=== PATIENT | male | born 1990 | race American Indian/Alaskan Native ===

== ENCOUNTER 2018-10-23 12:10 | Emergency (ER) | payer OTHER ==
[2018-10-23 12:10] VITALS: BMI 20.9
[2018-10-23 12:18] VITALS: BP 119/69; PULSE 76; RESP 18; TEMP 98.6; O2SAT 97
--- NOTE | 2018-10-23 14:42 | RAD ---
Date of service: 10/23/2018 PROCEDURE: HISTORY: pain COMPARISON: None TECHNIQUE: Two views FINDINGS: No fracture appreciated. No lytic lesions seen. IMPRESSION: No fracture appreciated.
--- NOTE | 2018-10-23 14:48 | RAD ---
Date of service: 10/23/2018 PROCEDURE: Radiographs of the Lumbar Spine. HISTORY: pain COMPARISON: No prior. FINDINGS: BONES: Normal alignment. No listhesis. No vertebral body fracture. There is lucency projecting over the lateral right L3 transverse process with some an comet overlying confounding bowel gas here. Artifact is favored. However consider bilateral oblique lumbar spine views very shallow to this frontal view with the pelvic shielding to further evaluate and to exclude any right transverse process fracture. History states pain. No additional history regarding any trauma available. 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 Correlate clinically DISC SPACES: Maintained OTHER FINDINGS: None. IMPRESSION: No vertebral body fracture. The appearance of the lateral right transverse process is indeterminate-consider shallow bilateral oblique views if this any clinical concern for any potential nondisplaced fracture here. Artifact from overlying bowel gas can simulate this. Clinical correlation is essential. Transitional features suggested at L5 as detailed above. 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 Comments: Study marked for PA review .
--- NOTE | 2018-10-23 15:04 | C.PDOC ---
History Of Present Illness 28 y/o male presents to the ED complaining of injuries sustained 2-3 days ago when he was arrested by police. States that the police were rough with him. Patient is now complaining of low back pain and sternal pain. No headache or other trauma. Patient has been taking Motrin without significant relief. He denies any numbness, extremity weakness, difficulty breathing, or other associated complaints. Time Seen by Provider: 10/23/18 12:50 Chief Complaint (Nursing): Back Pain History Per: Patient History/Exam Limitations: no limitations Onset/Duration Of Symptoms: Days Current Symptoms Are (Timing): Still Present Past Medical History Reviewed: Historical Data, Nursing Documentation, Vital Signs Vital Signs: Last Vital Signs Temp 98.6 F 10/23/18 12:17 Pulse 76 10/23/18 12:17 Resp 18 10/23/18 12:17 BP 119/69 10/23/18 12:17 Pulse Ox 97 10/23/18 12:17 - Medical History PMH: Denies: Depression - [facility] INJECT/INFUSE NEC (08/28/13) Family History: States: No Known Family Hx - Social History Hx Tobacco Use: Yes Hx Alcohol Use: No Hx Substance Use: No - Immunization History Hx Tetanus Toxoid Vaccination: No Hx Influenza Vaccination: No Hx Pneumococcal Vaccination: No Review Of Systems Constitutional: Negative for: Fever, Chills, Weakness Eyes: Negative for: Redness, Other (icterus) ENT: Negative for: Mouth Swelling Cardiovascular: Negative for: Chest Pain Respiratory: Negative for: Cough, Shortness of Breath Gastrointestinal: Negative for: Nausea, Vomiting, Diarrhea Genitourinary: Negative for: Dysuria, Hematuria Musculoskeletal: Positive for: Back Pain, Other (Sternal pain) Skin: Negative for: Rash Neurological: Negative for: Weakness, Numbness, Dizziness Physical Exam - Physical Exam Appears: Well, Non-toxic, No Acute Distress Skin: Normal Color, Warm, No Rash, Other (No ecchymosis or lesions to the lumbar region) Head: Atraumatic, Normacephalic Eye(s): bilateral: Normal Inspection, PERRL, EOMI Nose: Normal Oral Mucosa: Moist Neck: Normal ROM, Supple Chest: Tenderness (to lower aspect of sternum), Other (Large keloid scar horizontal across chest) Cardiovascular: Rhythm Regular, No Murmur Respiratory: No Rales, No Rhonchi, No Wheezing, Other (Moving air well, normal inspiratory effort) Gastrointestinal/Abdominal: Soft, No Tenderness, No Distention Back: No CVA Tenderness, Vertebral Tenderness (Mild questionable vertebral tenderness to lumbar spine), Decreased ROM (however able to bend to 90 before developing pain), Paraspinal Tenderness (across lumbar region), Other (Ambulatory with steady upright gait) Extremity: Bilateral: Atraumatic, Normal ROM (x 4) Pulses: Left Dorsalis Pedis: Normal, Right Dorsalis Pedis: Normal Neurological/Psych: Oriented x3, Normal Cranial Nerves ED Course And Treatment O2 Sat by Pulse Oximetry: 97 (RA) Pulse Ox Interpretation: Normal - Other Rad X-Ray LS Spine X-Ray: Read By Radiologist Interpretation: Accession No. : [id number]. Patient Name / ID : GAB LE / [id number]. Exam Date : 10/23/2018 13:46:39 ( Approved ). Study Comment : Sex / Age : M / 28Y. Creator : Amrita Ronquillo. Dictator : Amrita Ronquillo. Test Developer : Psychology Intern : Amrita Hutton. Approver2 : Report Date : 10/23/2018 14:44:49. My Comment : . Date of service: 10/23/2018. PROCEDURE: Radiographs of the Lumbar Spine. HISTORY: pain. COMPARISON: No prior. FINDINGS: BONES: Normal alignment. No listhesis. No vertebral body fracture. There is lucency p rojecting over the lateral right L3 transverse process with some an comet overlying confounding bowel gas here. Artifact is favored. However consider bilateral oblique lumbar spine views very shallow to this frontal view with the pelvic shielding to further evaluate and to exclude any right transverse process fracture. History states pain. No additional history regarding any trauma available. 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 Correlate clinically. DISC SPACES: Maintained. OTHER FINDINGS: None. IMPRESSION: No vertebral body fracture. The appearance of the lateral right transverse process is indeterminate-consider shallow bilateral oblique views if this any clinical concern for any potential nondisplaced fracture here. Artifact from overlying bowel gas can simulate this. Clinical correlation is essential. Transitional features suggested at L5 as detailed above. 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 Comments: Study marked for PA review . X-Ray Sternum X-Ray: Read By Radiologist Interpretation: Accession No. : [id number]. Patient Name / ID : GAB LE / [id number]. Exam Date : 10/23/2018 13:53:43 ( Approved ). Study Comment : Sex / Age : M / 28Y. Creator : Amrita Ronquillo. Dictator : Amrita Ronquillo. Test Developer : Psychology Intern : Amrita Hutton. Approver2 : Report Date : 10/23/2018 14:38:47. My Comment : . Date of service: 10/23/2018. PROCEDURE: HISTORY: pain. COMPARISON: None. TECHNIQUE: Two views. FINDINGS: No fracture appreciated. No lytic lesions seen. IMPRESSION: No fracture appreciated. Medical Decision Making Medical Decision Making: Impression: Trauma, Back pain, Sternal pain Plan: - Lumbar spine x-ray - Sternum x-ray - 15 mg IM Toradol Imaging reviewed. LS spine film read by radiology: The appearance of the lateral right transverse process is indeterminate-consider shallow bilateral oblique views if this any clinical concern for any potential nondisplaced fracture here. Artifact from overlying bowel gas can simulate this. Radiology recommends adding shallow bilateral oblique view. Second x-ray of lumbar spine ordered with views requested. Imaging of sternum is negative. 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 - Scribe Statement The provider has reviewed the documentation as recorded by the [facility] [place] All medical record entries made by the [place] were at my direction and personally dictated by me. I have reviewed the chart and agree that the record accurately reflects my personal performance of the history, physical exam, medical decision making, and the department course for this patient. I have also personally directed, reviewed, and agree with the discharge instructions and disposition.
== END 2018-10-23 16:54 | disposition home or self-care (01) ==
LOC: C.ER 12:10
DX: M54.5 Low back pain (principal); S20.219A Contusion of unspecified front wall of thorax, initial encounter; Y35.93XA Legal intervention, means unspecified, suspect injured, initial encounter; Z72.0 Tobacco use
CPT/HCPCS: 71120; 72100; 96372; 99283; J1885